=== PATIENT | male | born 1970 | race African-American/Black ===

== ENCOUNTER 2021-09-24 09:15 | Emergency (ER) | payer OTHER, SELFPAY ==
[2021-09-24 12:35] LABS: SARS-CoV-2 NAA Rapid Test Not Detected (NotDetected)
== END 2021-09-24 12:07 | disposition home or self-care (01) ==
LOC: CSHERS 09:15
DX: J20.9 Acute bronchitis, unspecified (principal); B34.9 Viral infection, unspecified; Z20.822 Contact with and (suspected) exposure to COVID-19
CPT/HCPCS: 0240U; 71045